=== PATIENT | male | born 1975 | race Caucasian/White ===

== ENCOUNTER 2023-01-20 06:22 | Day surgery (SDC) | payer OTHER, SELFPAY ==
[2023-01-04 11:25] VITALS: BMI 33.7
--- NOTE | 2023-01-19 11:15 | PM.HPGS ---
History of Present Illness History of Present Illness Consent: Risks, benefits, and alternatives have been discussed and questions answered. Patient agrees to proceed with procedure. Chief complaint: Gerd w/o Esophagitis, Dysphagia,Neoplasm Screening Narrative: Jorge Plata is a 47 year old male Was a very long history of acid reflux. He has been using omeprazole or other products daily, sometimes every other day or 2.. He is also having dysphagia lately for food. He is due for colon cancer screening. Review of Systems Review of Systems: All systems reviewed & are unremarkable except as noted in HPI and below PMFSH Past Medical History Medical History Actinic keratoses right maxillary Anxiety BMI 35.0-35.9,adult Colon cancer screening Dysphagia Encounter for prostate cancer screening PSA 0.48 on 11/17/2022. Encounter for wellness examination in adult GERD (gastroesophageal reflux disease) Irritable bowel syndrome with diarrhea Mixed hyperlipidemia (~11/17/22) Total cholesterol 235, triglycerides 121, HDL 47, LDL 164 with ratio 5.0 on 11/17/2022. Obesity (BMI 30-39.9) Vitamin B12 deficiency (11/17/22) level low at 368 with goal greater than 400 with folic acid 14.2 and hemoglobin 15.4 on 11/17/2022. Family History Family History Father Cancer Social History Social History Smoking status: Never smoker Alcohol intake: current Alcohol use details: weekends Substance use: never Substance use type: does not use Lack of Transportation: No Lack of Food: Never True Current Housing: I Have Housing Concerned About Future Housing: No Difficulty Paying Gas/Electric Bills: No Difficulty Paying for Meds: No Currently Unemployed: No Education: Master's Degree or Higher Difficulty w/ Childcare or Family Care: No Living arrangements: with family Spiritual care concerns: No Meds Home Medications and Allergies Home Medications Medication Instructions Recorded Confirmed Type omeprazole 40 mg capsule,delayed 40 mg PO DAILY #30 caps 11/08/22 01/20/23 Rx release cyanocobalamin (vitamin B-12) 1,000 mcg PO DAILY 12/05/22 01/20/23 History 1,000 mcg tablet Allergies Allergy/AdvReac Type Severity Reaction Status Date / Time No Known Allergies Allergy Mild Verified 01/20/23 06:37 Exam Const: General: alert Orientation/consciousness: patient oriented x3 Resp: Auscultation: clear to auscultation bilaterally Cardio: Rhythm: regular rhythm GI: GI Palp: Yes Soft to palpation and No Tenderness to palpation present (GI) Neuro: General: patient oriented x3 Assessment and Plan Assessment and plan (1) Dysphagia: Qualifiers: Dysphagia type: unspecified Qualified Code(s): R13.10 - Dysphagia, unspecified Code(s): R13.10 - Dysphagia, unspecified Status: Acute Assessment and Plan: EGD with possible biopsy or dilatation or cautery. (2) Colon cancer screening: Code(s): Z12.11 - Encounter for screening for malignant neoplasm of colon Status: Acute Assessment and Plan: Colonoscopy with possible biopsy or polypectomy or cautery or injection of substances.
--- NOTE | 2023-01-20 07:07 | P.PNAN_ITS ---
Anes - Initial Pre Proc Eval Procedure: Operation Date: 01/20/23 08:00 Proposed Procedures p Esophagogastroduodenoscopy - Wes Coleman MD s Screening Colonoscopy - Wes Coleman MD Date/Time: 01/20/23 07:07 Surgeon: Wes Coleman MD Pre Op Diagnosis: Gerd w/o Esophagitis, Dysphagia,Neoplasm Screening Patient Data Age: 47 Gender: M Height: 1.85 m Weight: 113.7 kg Allergies Allergy/AdvReac Type Severity Reaction Status Date / Time No Known Allergies Allergy Mild Verified 01/20/23 06:37 Home Medications Medication Instructions Recorded Confirmed Type omeprazole 40 mg capsule,delayed 40 mg PO DAILY #30 caps 11/08/22 01/20/23 Rx release cyanocobalamin (vitamin B-12) 1,000 mcg PO DAILY 12/05/22 01/20/23 History 1,000 mcg tablet Patient hx anesthesia problems: none Family hx anesthesia problems: none Results Review: All pre-operative results and documents have been reviewed as part of the pre- operative evaluation. [facility] Past Medical History Medical History (Updated 12/05/22 @ 23:29 by Jose Antonio Busch MD) Actinic keratoses right maxillary Anxiety BMI 35.0-35.9,adult Colon cancer screening Dysphagia Encounter for prostate cancer screening PSA 0.48 on 11/17/2022. Encounter for wellness examination in adult GERD (gastroesophageal reflux disease) Irritable bowel syndrome with diarrhea Mixed hyperlipidemia (~11/17/22) Total cholesterol 235, triglycerides 121, HDL 47, LDL 164 with ratio 5.0 on 11/17/2022. Obesity (BMI 30-39.9) Vitamin B12 deficiency (11/17/22) level low at 368 with goal greater than 400 with folic acid 14.2 and hemoglobin 15.4 on 11/17/2022. Family History Family History (Updated 11/08/22 @ 13:21 by Betty Goodwin MA) Father Cancer Social History Social History (Updated 11/08/22 @ 13:46 by Betty Goodwin MA) Smoking status: Never smoker Alcohol intake: current Alcohol use details: weekends Substance use: never Substance use type: does not use Lack of Transportation: No Lack of Food: Never True Current Housing: I Have Housing Concerned About Future Housing: No Difficulty Paying Gas/Electric Bills: No Difficulty Paying for Meds: No Currently Unemployed: No Education: Master's Degree or Higher Difficulty w/ Childcare or Family Care: No Living arrangements: with family Spiritual care concerns: No Anes - Eval Final PreProcedure Day of Procedure 01/20/23 07:07 Patient weight: obese Heart: regular rate and rhythm Lungs: clear to auscultation Airway: Mallampati scale class II Neurological: alert and oriented Last oral intake: >/= 8 hours ASA classification: II Emergent: no Anesthetic plan: proceed Anesthesia type and monitoring: general GIVS and standard monitoring Results Review: All pre-operative results and documents have been reviewed as part of the pre- operative evaluation. Informed Consent: The patient's anesthetic plan and its attendant risks and benefits were discussed with the patient/family/POA. Questions were solicited and answers provided to the satisfaction of the patient/family/POA.
[2023-01-20 07:18] VITALS: BP 132/99; PULSE 75; RESP 16; TEMP 36.6; O2SAT 100
[2023-01-20] MEDS: LACTATED RINGERS 1,000 ML 150 ML IV CONT (07:19)
[2023-01-20 08:08] VITALS: BP 124/89; PULSE 70; RESP 14; O2SAT 100
[2023-01-20 08:18] VITALS: BP 141/84; PULSE 69; RESP 15; O2SAT 98
[2023-01-20 08:28] VITALS: BP 122/93; PULSE 66; RESP 14; O2SAT 94
--- NOTE | 2023-01-20 13:05 | WPDANESPN ---
Anes - Prog Note Post-Op Date/Time: 01/20/23 13:05 Cardiovascular status: normal Respiratory status: normal Airway patency: baseline Mental status: baseline Post-Op hydration status: normal Vital Signs: Last Vital Signs Temp 36.6 C 01/20/23 07:18 Pulse 66 01/20/23 08:28 Resp 14 01/20/23 08:28 BP 122/93 H 01/20/23 08:28 Pulse Ox 94 01/20/23 08:28 O2 Del Method Room Air 01/20/23 08:28 Pain Score (VAS): 0 I/O: Intake & Output 01/19/23 01/20/23 01/20/23 23:59 07:59 15:59 Intake Total 400 Balance 400 Post-procedural complaints: none Patient Feedback: Patient satisfied with anesthetic care. Other Findings: Patient vital signs back to baseline. Patient denies nausea and vomiting. Patient's pain under control. Patient OK for discharge.
== END 2023-01-20 08:50 | disposition home or self-care (01) ==
PROVIDERS: PCP Family Medicine; Visit Provider Internal Medicine Gastroenterology
PROC: 0DJ08ZZ Inspection of Upper Intestinal Tract, Via Natural or Artificial Opening Endoscopic (ICD-10-PCS; CPT 43235; principal; 2023-01-20 08:00)
PROC: 0DJD8ZZ Inspection of Lower Intestinal Tract, Via Natural or Artificial Opening Endoscopic (ICD-10-PCS; CPT 45378; 2023-01-20 08:00)
DX: Z12.11 Encounter for screening for malignant neoplasm of colon (principal); K21.9 Gastro-esophageal reflux disease without esophagitis; R13.19 Other dysphagia; D12.5 Benign neoplasm of sigmoid colon
CPT/HCPCS: 45380; 43249; 43239

== ENCOUNTER 2023-01-20 08:00 | Outpatient (NON) | payer OTHER, SELFPAY | END 2023-01-20 08:01 | disposition home or self-care (01) | PROVIDERS: PCP Family Medicine; Visit Provider Internal Medicine Gastroenterology | DX: K21.9 Gastro-esophageal reflux disease without esophagitis (principal); Z12.11 Encounter for screening for malignant neoplasm of colon | CPT/HCPCS: 88305 ==

== ENCOUNTER 2024-07-03 07:51 | Outpatient (CLI) | payer OTHER, SELFPAY ==
--- OUTSIDE RECORDS SUMMARY | 2024-07-03 07:55 | XMS_ITS | Clinical Summary ---
Author Organization [facility] Address [address] [address] Phone Care Team Providers Care Cargo Services Coordinator Name Role Phone Steven Webster MD Primary Care Provider [phone] Allergies No known active allergies Medications No known medications Social History Tobacco Use Types Packs/Day Years Used Date Smoking Tobacco: Never Alcohol Use Standard Drinks/Week Comments Yes 0 (1 standard drink = 0.6 oz pur e alcohol) social Sex and Gender Information Value Date Recorded Sex Assigned at Not on file Legal Sex Male 9:32 PM CDT Gender Identity Not on file Sexual Orientation Not on file 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 Not on file Not on file Not on f ile Last Filed Vital Signs Vital Sign Reading Time Taken Comments Blood Pressure 126/76 06/23/2015 10:21 AM [employer] Pulse 70 06/23/2015 10:21 AM [employer] N[employer] Temperature - - Respiratory Rate - - Oxygen Saturation - - Inhaled Oxygen Concentration - - Weight 110.2 kg (243 lb) 06/23/2015 10:21 AM [employer] N[employer] Height 189.2 cm (6' 2.5 ) 06/23/2015 10:21 AM CS T Body Mass Index 30.78 06/23/2015 10:21 AM [employer] NUTRITIONIST Plan of Treatment Health Maintenance Due Date Last Done Comments Hepatitis C Virus (HCV) Screening 1974 TdaP Immunization 1974 Hepatitis B Immunization (1 of 3 - 19+ 3-dose series) 1993 Colonoscopy 09/18/2019 Colorectal Cancer Screening 09/18/2019 Influenza Immunization (#1) 2024 SARS-COV-2 Immunization ( - 2023-25 season) 2024 Respiratory Syncytial Virus (RSV) Immunization (Adult) (1 - 1-dose 75+ series) 2049 Meningococcal Immunization (ACWY) Aged Out No longer eligible based on patient's age to complete this topic Pneumococcal Immunization Combined Aged Out No longer eligible based on patient's age to complete this topic Rotavirus Immunization Aged Out No lo nger eligible based on patient's age to complete this topic Care Teams Cargo Services Coordinator Relationship Specialty Start Date End Date Steven Webster MD [address] [place] [address] PCP - General Internal Medicine 06/23/15
--- NOTE | 2024-07-17 18:38 | WPDHOMESLEEP ---
Sleep Study - Home Unattended Date of Study: 07/03/24 Ordering Provider: Jose Antonio Busch MD Interpreting Provider: Nicolasa Terrazas, DO Home Sleep Study Type: Watch PAT Height: 1.83 m Weight: 111.13 kg Body Mass Index: 33.2 Neck Circumference (inches): 17 [place]: 10 Reason for Sleep Study Daytime hypersomnia Sleep History The patient is a 48-year-old male that had a sleep study ordered by his primary care physician for evaluation sleep. The patient admits to having trouble falling asleep, snoring loudly and trouble staying asleep. The patient does have interruptions in breathing while asleep. He denies choking or gasping at night. He denies having trouble breathing on his back. He denies morning headaches. He does have a dry or sore mouth / throat in the morning. He does have nocturnal heartburn. He denies nocturia. He does have difficulty returning to sleep if wakes up throughout the night. He denies any hypnotic or sedative use. He denies feeling anxious about sleep. He does feel tired or sleepy during the day. He does feel tired in. He denies having the urge to fall asleep during the day. He does feel drowsy while driving. He denies sleep paralysis, cataplexy and hypnagogic/ hypnopompic hallucinations. He does clench or grind his teeth. He does kick or jerk his legs excessively. He does have a restless feeling in his legs that causes an urge to move his legs. The restless feeling gets worse with rest and better with activity. The restless feeling occurs evening or. It does not cause a disturbance in his sleep. He goes to bed at 10:00 p.m. on work days and at 11:00 p.m. on his days. It takes him 30 minutes to fall asleep. He gets 6 hours of sleep on work days and 7 hours of sleep his days off. His sleep is a little more restorative his days. He denies taking any planned naps. He denies dream enactment behavior. He denies sleep walking. He consumes 3-4 cups of caffeinated beverage per day. He denies tobacco use. He consumes more than 3 alcoholic beverages 1-2 nights per week. He does not exercise on a regular basis. [facility] Past Medical History Medical History Obesity (BMI 30-39.9) BMI 32.0-32.9,adult Hypersomnia GERD with esophagitis EGD 01/20/2023 with nonerosive esophagitis and Schatzki's ring dilated. Overweight (BMI 25.0-29.9) BMI 28.0-28.9,adult BMI 30.0-30.9,adult Polyp of colon (01/20/23) 5 mm sessile Benign hyperplastic polyp of the mid sigmoid colon on 01/20/2023 with recheck in 5-7 years. Vitamin B12 deficiency (11/17/22) level low at 368 with goal greater than 400 with folic acid 14.2 and hemoglobin 15.4 on 11/17/2022. level normal at 446 on 05/02/2023. level low at 311 with goal greater than 400 on 11/23/2023 with hemoglobin 14.9. Mixed hyperlipidemia (~11/17/22) Total cholesterol 235, triglycerides 121, HDL 47, LDL 164 with ratio 5.0 on 11/17/2022. Total cholesterol 182, triglycerides 88, HDL 45, LDL 118 with ratio of 4.0 on 05/02/2023. Total cholesterol 218, HDL 54, triglycerides 73, LDL 147 with ratio 4.0 on 11/23/2023. Colon cancer screening Actinic keratoses right maxillary Irritable bowel syndrome with diarrhea GERD (gastroesophageal reflux disease) EGD with reflux and moderate Schatzki's ring dilated 01/20/2023. biopsy with chronic esophagitis with no Campos's esophagitis. Dysphagia BMI 35.0-35.9,adult Encounter for prostate cancer screening PSA 0.48 on 11/17/2022. PSA 0.37 on 11/23/2023. Encounter for wellness examination in adult Anxiety Family History Family History Father Cancer Social History Social History Smoking status: Never smoker Alcohol intake: current Alcohol use details: weekends Substance use: never Substance use type: does not use Lack of Transportation: No Lack of Food: Never True Current Housing: I Have Housing Concerned About Future Housing: No Difficulty Paying Gas/Electric Bills: No Difficulty Paying for Meds: No Currently Unemployed: No Education: Master's Degree or Higher Difficulty w/ Childcare or Family Care: No Living arrangements: with family Spiritual care concerns: No Medications Home Medications ?Medication ?Instructions ?Recorded ?Confirmed ?Type cyanocobalamin (vitamin B-12) 1,000 mcg PO DAILY 12/05/22 06/06/24 History 1,000 mcg tablet omeprazole 40 mg capsule,delayed 40 mg PO DAILY #90 caps 05/17/24 06/06/24 Rx release bupropion HCl 150 mg 24 hr tablet, 150 mg PO QAM #30 tabs 06/28/24 Rx extended release (Wellbutrin XL) Sleep Procedure The sleep study was completed using G3T a technically adequate device with seven channels: peripheral arterial tone, actigraphy, body position, snore, respiratory movement, pulse oximetry, sleep staging, and heart rate. Prior to using the device, the patient received verbal and written instructions for its application and was provided with the help desk phone number for additional telephonic instruction with 24-hour availability of qualified personnel to answer questions. The study was scored using CMS guidelines. Sleep Architecture The total recording time is 8 hrs, 44 min. The total sleep time is 7 hrs, 42 min. Sleep latency is 18 minutes. REM latency is 144 minutes. The patient had 11 episodes of waking. Sleep architecture shows 13.6% deep sleep, 61.9% light sleep, and (as % Total Sleep Time) showed NREM (Light 61.9%; Deep 13.6%), and a 24.4% stage REM. The patient spent 55.7% of total sleep time in the supine position. Sleep efficiency was 88.17. Respiratory Analysis The overall AHI (pAHI 4%:) is 10.5. The overall AHI (pAHI 3%:) is 22.4. The central AHI is 3.6. The AHI was 22.5 in NREM and 21.9 in REM sleep. The AHI was 27.7 in Supine and 11.1 in Non-supine sleep. Percent of Reynaldo Martin respirations is 0.0. Oximetry Data The oxygen desaturation index (PETER 4%:) is 11.2. The mean saturation is 95%, and the lowest saturation is 88%. Time spent with saturation < 88% is 0.1 minutes. Snoring Profile Snoring average intensity is 45 dB. The patient snored above 45 decibels for 148.3 minutes, 32.1% of sleep time. Cardiac Profile The average pulse rate is 67 beats per minutes. The lowest pulse rate is 52 bpm. The highest pulse rate reported is 103 bpm. Atrial fibrillation was not detected. Premature beats occur <0.1 per minute. Assessment and Plan Assessment and Plan (1) SHARI (obstructive sleep apnea): Code(s): G47.33 - Obstructive sleep apnea (adult) (pediatric) Status: Acute Assessment and Plan: The patient had an overall AHI of 10.5 with desaturation down to 88%. This is consistent with mild sleep apnea. Due to the patient's anxiety, he qualifies for treatment. I recommend that the patient be prescribed Resmed AutoPAP 5-15 cm H2O, CPAP mask/filters/tubing and heated humidity. A mandibular advancement device is also an acceptable treatment option. This should be used with all episodes of sleep.? Compliance should be reviewed within 31-90 days of starting therapy for usage greater than 4 hours per night greater than 70% of the nights. The patient should be asked about symptoms such as?excessive daytime sleepiness, quality of sleep, decreased nocturia, increased?mental functioning such as memory, mood, and concentration. (2) Restless legs syndrome (RLS): Code(s): G25.81 - Restless legs syndrome Status: Acute Assessment and Plan: The patient's sleep history is consistent with Restless Leg Syndrome. I recommend that the patient have a serum ferritin drawn for evaluation of iron deficiency anemia. If the patient has a serum ferritin less than 75 ng/mL, I recommend starting a daily iron supplement and a Vitamin C supplement for better absorption. If the serum ferritin is greater than 75 ng/mL, I recommend starting a dopamine agonist and titrating the dose until symptoms resolve. There are nonpharmacological methods to treat limb movements including daily exercise, stretching calf muscles before bed, avoiding excessive amounts of caffeine and alcohol, vitamin B supplementation, magnesium lotion massaged into legs before bed, and use of a weighted blanket. Data The data obtained during this sleep study is adequate for interpretation. Certification This sleep study has been reviewed by a board certified sleep medicine physician.
[2024-07-18 12:41] VITALS: BMI 33.2
== END 2024-07-04 12:05 | disposition home or self-care (01) ==
LOC: ANHCSM 07:51
PROVIDERS: PCP Family Medicine; Visit Provider Family Medicine
DX: G47.33 Obstructive sleep apnea (adult) (pediatric) (principal); G25.81 Restless legs syndrome; G47.10 Hypersomnia, unspecified
CPT/HCPCS: 95800